=== PATIENT | male | born 1990 | race Caucasian/White ===

== ENCOUNTER 2018-07-12 14:44 | Emergency (ER) | payer OTHER ==
[2018-07-12 15:58] VITALS: BP 150/90
--- NOTE | 2018-07-12 16:32 | ER Document Report ---
ED Medical Screen (RME) - General Chief Complaint: Rib Pain Stated Complaint: LEFT RIB PAIN, COUGH Time Seen by Provider: 07/12/18 16:18 - HPI Notes: 07/12/18 16:29 Patient is a 28-year-old male with no significant past medical history who presents to the ED complaining of left lower rib pain, left upper quadrant pain , pain with deep inspiration, and hemoptysis status post jumping off of a 20 foot da into water. Patient states that his last ambulated on his left side which he immediately started having red hemoptysis. Patient states that has calmed down since then, but still will have a blood-tinged sputum with acute exacerbations of coughing. Denies any headache, fever, head injury, LOC, neck pain, changes in vision/ speech/mentation/hearing, URI, sore throat, palpitations, syncope, nausea/ vomiting/diarrhea, urinary retention, dysuria, hematuria, loss of control of bowel or bladder, numbness/tingling, saddle anesthesia, muscle paralysis/ weakness, or rash. I have treated and performed a rapid initial assessment of this patient. A comprehensive ED assessment and evaluation of the patient, analysis of test results and completion of medical decision making process will be conducted by additional ED providers. Reviewed with Dr. Reyes who recommends CT chest/abd with IV contrast to further evaluate. PHYSICAL EXAMINATION: GENERAL: Well-appearing, well-nourished and in no acute distress. A&Ox4. Answers questions appropriately. Chest: + tenderness to the left lower ribs. No ecchymosis or flail chest. LUNGS: Breath sounds clear to auscultation bilaterally and equal. No wheezes rales or rhonchi. HEART: Regular rate and rhythm without murmurs, rubs, gallops. ABDOMEN: Soft, nondistended abdomen. No guarding, no rebound. Normal bowel sounds present. + LUQ/flank tenderness to palpation. No ecchymosis. Extremities: No cyanosis, clubbing, or edema b/l. NEUROLOGICAL: Normal speech, normal gait. PSYCH: Normal mood, normal affect. - Related Data Allergies/Adverse Reactions: No Known Allergies Allergy (Verified 07/12/18 16:22) Past Medical History - Social History Chew tobacco use (# tins/day): No Frequency of alcohol use: Occasional Drug Abuse: None Renal/ Medical History: Denies: Hx Peritoneal Dialysis Past Surgical History: Reports: Hx Orthopedic Surgery - r ankle Physical Exam - Vital signs Vitals: Temp Pulse Resp BP Pulse Ox 98.9 F 76 18 150/90 H 100 07/12/18 15:55 07/12/18 15:55 07/12/18 15:55 07/12/18 15:55 07/12/18 15:55 Course - Vital Signs Vital signs: Temp Pulse Resp BP Pulse Ox 98.9 F 76 18 150/90 H 100 07/12/18 15:55 07/12/18 15:55 07/12/18 15:55 07/12/18 15:55 07/12/18 15:55
--- NOTE | 2018-07-12 16:39 | ER Document Report ---
ED General - General Chief Complaint: Rib Pain Stated Complaint: LEFT RIB PAIN, COUGH Time Seen by Provider: 07/12/18 16:18 - HPI Notes: Patient is a 28-year-old male with no significant past medical history who presents to the ED complaining of left lower rib pain, left upper quadrant pain , pain with deep inspiration, and hemoptysis status post jumping off of a 20 foot da into water. Patient states that his last jump, he landed on his left side which resulted in immediately started having red hemoptysis. Patient states that has calmed down since then, but still will have a blood-tinged sputum with acute exacerbations of coughing. Patient states that he is eating and drinking without any difficulties. He is urinating normally and having bowel movements. Denies any drug allergies. Patient does admit to smoking, but denies IV drug use or alcohol involvement. Denies any headache, fever, head injury, LOC, neck pain, changes in vision/ speech/mentation/hearing, URI, sore throat, palpitations, syncope, nausea/ vomiting/diarrhea, urinary retention, dysuria, hematuria, loss of control of bowel or bladder, numbness/tingling, saddle anesthesia, muscle paralysis/ weakness, or rash. - Related Data Allergies/Adverse Reactions: No Known Allergies Allergy (Verified 07/12/18 16:22) Past Medical History - Social History Smoking Status: Current Every Day Smoker Chew tobacco use (# tins/day): No Frequency of alcohol use: Occasional Drug Abuse: None Family History: Reviewed & Not Pertinent Patient has suicidal ideation: No Patient has homicidal ideation: No Renal/ Medical History: Denies: Hx Peritoneal Dialysis Past Surgical History: Reports: Hx Orthopedic Surgery - r ankle Review of Systems - Review of Systems -: Yes All other systems reviewed and negative Physical Exam - Vital signs Vitals: Temp Pulse Resp BP Pulse Ox 98.9 F 76 18 150/90 H 100 07/12/18 15:55 07/12/18 15:55 07/12/18 15:55 07/12/18 15:55 07/12/18 15:55 - Notes Notes: PHYSICAL EXAMINATION: GENERAL: Well-appearing, well-nourished and in no acute distress. A&Ox4. Answers questions appropriately. Head: atraumatic. No jones sign. Eyes: PERRLA, EOMI, no entrapment or raccoon eyes. Neck: FROM. No midline tenderness. Chest: + tenderness to the left lower ribs. No ecchymosis or flail chest. LUNGS: Breath sounds clear to auscultation bilaterally and equal. No wheezes rales or rhonchi. HEART: Regular rate and rhythm without murmurs, rubs, gallops. ABDOMEN: Soft, nondistended abdomen. No guarding, no rebound. Normal bowel sounds present. + LUQ/flank tenderness to palpation. No ecchymosis. Extremities: No cyanosis, clubbing, or edema b/l. MS: Ext's b/l: FROM. Strength 5+/5. No deficits noted. N/v intact distal. NEUROLOGICAL: Normal speech, normal gait. Cranial nerves grossly intact. No focal weakness. PSYCH: Normal mood, normal affect. Course - Re-evaluation Re-evalutation: 07/12/18 16:[address] Reyes who recommends CT chest/abd with IV contrast to further evaluate. UA, CBC, and CMP ordered. 07/12/18 19:[address] Reyes who is in agreement with dispo/plan. Patient is an afebrile, well-hydrated, 28-year-old male who presents to the ED with left lower rib pain and left upper quadrant abdominal pain, suspect rib contusion, and possible pleurisy/pulmonary contusion. Vitals are acceptable without any significant tachycardia, tachypnea, or hypoxia. CBC, CMP, urinalysis were unremarkable for any acute pathology. CTA of the chest, abdomen , and pelvis was grossly unremarkable for any acute pathology including any fractures. Patient is nontoxic-appearing is tolerating p.o. without difficulties. No other labs or imaging warranted at this time based on H&P. I will send him home with a prescription for naproxen. Conservative measures for symptoms. Low suspicion for any ACS, PE, pneumothorax, pericarditis, dissection , esophageal rupture, respiratory compromise, severe dehydration, sepsis, meningitis, acute abdomen, or other systemic emergent condition at this time. Patient is aware that his condition can change from initial presentation and he needs to monitor symptoms closely and seek medical attention for any acute changes. Recheck with your PCM in 2-3 days. Return to the ED with any worsening/concerning symptoms otherwise as reviewed in discharge. Patient is in agreement. - Vital Signs Vital signs: Temp Pulse Resp BP Pulse Ox 98.9 F 76 18 150/90 H 100 07/12/18 15:55 07/12/18 15:55 07/12/18 15:55 07/12/18 15:55 07/12/18 15:55 - Laboratory Result Diagrams: 07/12/18 17:41 07/12/18 17:41 Laboratory results interpreted by me: 07/12/18 17:41 WBC 12.4 H Absolute Neutrophils 8.6 H Discharge - Discharge Clinical Impression: Rib pain on left side, Abdominal pain, left upper quadrant Condition: Stable Disposition: HOME, SELF-CARE Instructions: Abdominal Pain ([facility]), Rib Contusion ([facility]) Additional Instructions: Rest, Ice Tylenol/ibuprofen as needed Light stretches daily Strength exercises as able Moist heat and massage may help F/u with your PCP in 2-3 days for a recheck Return to the ED with any worsening symptoms and/or development of fever, headache, chest pain, palpitations, syncope, shortness of breath, trouble breathing, abdominal pain, n/v/d, blood in stool/urine, loss of control of bowel /bladder, urinary retention, muscle weakness/paralysis, saddle anesthesia, numbness/tingling, or other worsening symptoms that are concerning to you. Prescriptions: Naproxen 500 mg PO BID PRN #30 tablet PRN Reason: Forms: Elevated Blood Pressure, Smoking Cessation Education Referrals: [facility] [Provider Group] - Follow up as needed
[2018-07-12 18:08] LABS: APPEARANCE,URINE CLEAR; BILIRUBIN,URINE NEGATIVE (NEGATIVE); COLOR,URINE YELLOW; GLUCOSE, URINE NEGATIVE (NEGATIVE); KETONES,URINE NEGATIVE (NEGATIVE); LEUKOCYTE ESTERASE,URINE NEGATIVE (NEGATIVE); NITRITE,URINE NEGATIVE (NEGATIVE); PROTEIN,URINE NEGATIVE (NEGATIVE); URINE SPECIFIC GRAVITY 1.011; UROBILINOGEN,URINE NEGATIVE mg/dL (<2.0)
[2018-07-12 18:15] LABS: ABSOLUTE BASOPHILS # (AUTO) 0.1 10^3/uL (0.0-0.2); ABSOLUTE EOSINOPHILS # (AUTO) 0.3 10^3/uL (0.0-0.6); ABSOLUTE LYMPHOCYTES (AUTO) 2.6 10^3/uL (0.5-4.7); ABSOLUTE MONOCYTES (AUTO) 0.9 10^3/uL (0.1-1.4); ABSOLUTE NEUT (AUTO) 8.6 10^3/uL (1.7-8.2); BASOPHILS % (AUTO) 0.5 % (0-2); EOSINOPHILS % (AUTO) 2.2 % (0-6); HEMATOCRIT 45.3 % (37.9-51.0); HEMOGLOBIN 15.6 g/dL (13.5-17.0); LYMPHOCYTES % (AUTO) 20.6 % (13-45); MEAN CORPUSCULAR HEMOGLOBIN 31.6 pg (27.0-33.4); MEAN CORPUSCULAR HGB CONC 34.4 g/dL (32.0-36.0); MEAN CORPUSCULAR VOLUME 92 fl (80-97); PLATELET COUNT 267 10^3/uL (150-450); RED BLOOD COUNT 4.93 10^6/uL (4.35-5.55); RED CELL DISTRIBUTION WIDTH 13.3 % (11.5-14.0); SEGMENTED NEUTROPHILS % (AUTO) 69.7 % (42-78); TOTAL CELLS COUNTED % (AUTO) 100 %; WHITE BLOOD COUNT 12.4 10^3/uL (4.0-10.5)
--- NOTE | 2018-07-12 18:39 | RADIOLOGY REPORT (SQ) ---
EXAM DESCRIPTION: CTA CHEST COMPLETED DATE/TIME: 07/12/2018 6:18 pm REASON FOR STUDY: hemoptysis, left lower rib/LUQ pain s/p 20ft jump COMPARISON: None. TECHNIQUE: CT scan of the chest performed using helical scanning technique with dynamic intravenous contrast injection. Images reviewed with lung, soft tissue and bone windows. Reconstructed coronal and sagittal MPR images reviewed. Additional 3 dimensional post-processing performed to develop Maximal Intensity Projection images (DE P). All images stored on PACS. All CT scanners at this facility use dose modulation, iterative reconstruction, and/or weight based d osing when appropriate to reduce radiation dose to as low as reasonably achievable (ALARA). [facility]: Dose Right [facility]: CareDose [facility]: Dose Right [facility]: Teradose 4D [facility]: [employer] CONTRAST TYPE AND DOSE: contrast/concentration: Isovue 350.00 mg/ml; Total Contrast Delivered: 72.0 ml; Total Saline Delivered: 87.0 ml Contrast bolus optimized for the pulmonary arteries. Not diagnostic for the aorta. RENAL FUNCTION: None required. The patient is less than 50 years old. RADIATION DOSE: . LIMITATIONS: None. FINDINGS: LUNGS AND PLEURA: No masses or infiltrates. No pulmonary contusion. No pneumothorax. AORTA AND GREAT VESSELS: No aneurysm. Contrast bolus not optimized for the aorta. HEART: No pericardial effusion. No significant coronary artery calcifications. PULMONARY ARTERIES: No emboli visualized in the main pulmonary arteries or the segmental branches. HILAR AND MEDIASTINAL STRUCTURES: No identified masses or abnormal nodes. HARDWARE: None in the chest. UPPER ABDOMEN: See separate report of the CT of the abdomen. THYROID AND OTHER SOFT TISSUES: No masses. No adenopathy. BONES: No fractures are seen. No osseous lesions. 3D MIPS: Confirm above findings. OTHER: No other significant finding. IMPRESSION: NORMAL CTA OF THE CHEST. NO PULMONARY EMBOLI. COMMENT: Quality ID # [id number]: Final reports with documentation of one or more dose reduction techniques (e.g., Automated exposure control, adjustment of the mA and/or kV according to patient size, use of iterative reconstruction technique) TECHNICAL DOCUMENTATION: JOB ID: [id number] [employer]- All Rights Reserved Reading location - IP/workstation name: [email or web address]
[2018-07-12 18:41] LABS: ALANINE AMINOTRANSFERASE 37 U/L (21-72); ALBUMIN 4.8 g/dL (3.5-5.0); ALKALINE PHOSPHATASE 65 U/L (38-126); ANION GAP 13 (5-19); ASPARTATE AMINO TRANSFERASE 34 U/L (17-59); BILIRUBIN,DIRECT 0.3 mg/dL (0.0-0.4); BILIRUBIN,TOTAL 0.4 mg/dL (0.2-1.3); BLOOD UREA NITROGEN 8 mg/dL (7-20); CALCIUM 9.9 mg/dL (8.4-10.2); CARBON DIOXIDE 27 mmol/L (22-30); CHLORIDE 102 mmol/L (98-107); GLUCOSE 83 mg/dL (75-110); POTASSIUM 4.5 mmol/L (3.6-5.0); SODIUM 142.1 mmol/L (137-145); TOTAL PROTEIN 7.7 g/dL (6.3-8.2)
--- NOTE | 2018-07-12 18:54 | RADIOLOGY REPORT (SQ) ---
EXAM DESCRIPTION: CT ABD/PELVIS WITH IV ONLY COMPLETED DATE/TIME: 07/12/2018 6:18 pm REASON FOR STUDY: hemoptysis, left lower rib/LUQ pain s/p 20ft jump COMPARISON: None. TECHNIQUE: CT scan of the abdomen and pelvis performed using helical scanning technique with dynamic intravenous contrast injection. No oral contrast. Images reviewed with lung, soft tissue, and bone windows. Reconstructed coronal and sagittal MPR images reviewed. Delayed images for evaluation of the urinary system also acquired. All images stored on PACS. All CT scanners at this facility use dose modulation, iterative reconstruction, and/or weight based d osing when appropriate to reduce radiation dose to as low as reasonably achievable (ALARA). [facility]: Dose Right [facility]: CareDose [facility]: Dose Right [facility]: Teradose 4D [facility]: [employer] [place] CONTRAST TYPE AND DOSE: 72 mL Omnipaque 350- low osmolar. RENAL FUNCTION: None required. The patient is less than 50 years old. RADIATION DOSE: CT Rad equipment meets quality standard of care and radiation dose reduction techniq ues were employed. CTDIvol: 10.2 - 16.5 mGy. DLP: 1765 mGy-cm.. LIMITATIONS: None. FINDINGS: LOWER CHEST: See separate report of the CT of the chest. LIVER: Normal size. No masses. No dilated ducts. SPLEEN: Normal size. No focal lesions. PANCREAS: No masses. No significant calcifications. No adjacent inflammation or peripancreatic fluid collections. Pancreatic duct not dilated. GALLBLADDER: No identified stones by CT criteria. No inflammatory changes to suggest cholecystitis. ADRENAL GLANDS: No significant masses or asymmetry. RIGHT KIDNEY AND URETER: No solid masses. Small nonobstructing intrarenal calculi. No hydronephro sis or hydroureter. LEFT KIDNEY AND URETER: No solid masses. Small nonobstructing intrarenal calculi. No hydronephros is or hydroureter. AORTA AND VESSELS: No aneurysm. No dissection. Renal arteries, SMA, celiac without stenosis. RETROPERITONEUM: No retroperitoneal adenopathy, hemorrhage or masses. BOWEL AND PERITONEAL CAVITY: No masses or inflammatory changes. No free fluid or peritoneal masses. APPENDIX: Not identified. PELVIS: The wall of the urinary bladder is thickened. ABDOMINAL WALL: No masses. No hernias. BONES: No significant or acute findings. OTHER: No other significant finding. IMPRESSION: 1. No acute visceral injury. 2. Nonobstructing intrarenal calculi. 3. There is thickening of the wall of the bladder. Is there any clinical evidence of cystitis? TECHNICAL DOCUMENTATION: JOB ID: [id number] Quality ID # [id number]: Final reports with documentation of one or more dose reduction techniques (e.g., Au tomated exposure control, adjustment of the mA and/or kV according to patient size, use of iterative reconstruction technique) 2010 [employer]- All Rights Reserved Reading location - IP/workstation name: [email or web address]
== END 2018-07-12 19:55 | disposition home or self-care (01) ==
LOC: ER 14:44
DX: R10.12 Left upper quadrant pain (principal); R07.81 Pleurodynia; F17.200 Nicotine dependence, unspecified, uncomplicated
CPT/HCPCS: 36415; 71275; 74177; 80053; 81001; 85025; 99284